=== PATIENT | female | born 1960 | race Caucasian/White ===

== ENCOUNTER 2022-06-05 12:00 | Outpatient (CLI) | payer OTHER, SELFPAY ==
--- NOTE | ~2022-06-05 | XR_ITS ---
EXAMINATION: XR abdomen/kub 1V INDICATION: Staghorn calculus TECHNIQUE: Supine views of the abdomen were obtained on 2 radiographs. COMPARISON: None FINDINGS: Bowel contents project over the kidneys limiting sensitivity for renal stones. There is a q uestionable calculus in the upper pole of the left kidney. The bowel gas pattern is normal. There is mild osteoarthritis of the hips. Phleboliths are noted in the pelvis. IMPRESSION: 1. Possible calculus in the left kidney upper pole. Reviewed, dictated and finalized at location B.
== END 2022-06-05 12:01 | disposition home or self-care (01) ==
PROVIDERS: PCP Physician Assistant; Visit Provider Urology
DX: N20.0 Calculus of kidney (principal); M16.0 Bilateral primary osteoarthritis of hip
CPT/HCPCS: 74018

== ENCOUNTER 2023-03-01 14:51 | Outpatient (CLI) | payer OTHER, SELFPAY ==
--- NOTE | ~2023-03-01 | XR_ITS ---
XR abdomen/kub 1V DATE: 03/01/2023 15:09 INDICATION: Staghorn calculus. History of kidney stones. TECHNIQUE: Supine AP projection, 2 views COMPARISON: 06/05/2022 KUB FINDINGS: Suggestion of a small calcified calculus of the upper pole the right kidney. No other obvio us urinary tract calcifications are detected. Noncontrast CT abdomen pelvis examination would be more accurate and sensitive for detection of urinary tract calculi. Multiple left-sided calcified pelvic phleboliths are again present. The psoas shadows are intact. No visceromegaly is detected. No evidence of bowel obstruction. IMPRESSION: Possible small calcified upper pole right renal calculus Reviewed, dictated and finalized at Location A. Reviewed, dictated and finalized at location []
== END 2023-03-01 14:52 | disposition home or self-care (01) ==
PROVIDERS: PCP Physician Assistant; Visit Provider Urology
DX: N20.0 Calculus of kidney (principal)
CPT/HCPCS: 74018

== ENCOUNTER 2024-04-12 13:17 | Outpatient (CLI) | payer MEDICARE, SELFPAY ==
--- NOTE | ~2024-04-12 | XR_ITS ---
XR abdomen/kub 1V Ordering provider: Aaron Ryan MD History: . Staghorn calculus, 6 MONTH FOLLOW UP ON KIDNEY STONE . Comparison: March 01, 2023 FINDINGS: BOWEL: Nonobstructive bowel gas pattern. ORGANOMEGALY: None. SIGNIFICANT PATHOLOGIC CALCIFICATIONS: Tiny stone in the right kidney unchanged. Calcifications in th e left side of the pelvis are unchanged most likely phlebolith' s. OTHER: No free air is seen under the diaphragm. IMPRESSION: NO ACUTE ABDOMINAL FINDINGS. Right kidney stone unchanged from previous examination. Reviewed, dictated and finalized at location A.
== END 2024-04-12 13:18 | disposition home or self-care (01) ==
LOC: ANHIMG 13:25
PROVIDERS: PCP Physician Assistant; Visit Provider Urology
DX: N20.0 Calculus of kidney (principal)
CPT/HCPCS: 74018